=== PATIENT | female | born 1945 | race Caucasian/White ===

== ENCOUNTER → 2016-10-17 | Outpatient (CLI) | payer MEDICARE, OTHER ==
[~2016-10-17] MED LIST: 3N1 COMMODE MC; AMLO5TAB4 PO; ASPI-781 PO; BEN25 PO; BENA1TAB13 PO; BISA10SU75 PR; CARI350T29 PO; CPM MC; DIAZ5TAB4 PO; DOCU-144 PO; DULO30CA45 PO; FLUT16SP17 NASAL; HYDR200T5 PO; IBAN150T7 PO; LAMO100T83 PO; LYR75 PO; OMEP20CA16 PO; OXYC-481 PO; RANI150T9 PO; SMV40T PO; SYN75 PO; TRAM50TA2 PO; WALK1EAC23 MC
--- NOTE | 2016-10-17 09:40 | RADRPT ---
PROCEDURE: XR Knee. CLINICAL INDICATION: Left knee pain TECHNIQUE: 3 images of the left knee are available for review. COMPARISON: Radiographs of the left knee April 01, 2016 FINDINGS: There is a total left knee arthroplasty in anatomic alignment. There is no evidence of fracture or loosening by radiographs. There is a small knee joint effusion. The soft tissues are otherwise unr emarkable. IMPRESSION: 1. Left knee total arthroplasty in anatomic alignment without evidence of acute fracture or loosenin g. 2. Small nonspecific knee joint effusion. RPTAT: UU .Ben Perry MD, MD Date Time Electronically viewed and signed by .Ben Perry MD, MD on 10/17/2016 09:39 .K/
--- NOTE | 2016-10-17 10:59 | HKNOTE ---
DATE OF SERVICE: 10/17/2016 INTERVAL HISTORY: The patient presents today for a followup evaluation on her left knee. She is approximately 1-1/2 years status post left total knee arthroplasty. She is here today for reevaluation of her left knee. She was sent over by Dr. Sundar Hutchinson for evaluation. The patient has been having increasing pain to her left knee for the past 4 weeks. She denies any recurrent fall, trauma or injury. She denies any fevers or chills. She has had a lot of other issues going on including a second low back surgery as well as a right wrist surgery for a radius fracture. As a result of her back surgery she has been walking with a slightly abnormal gait, which has been aggravating her left knee symptoms. She was sent over by her primary care doctor for evaluation and x-rays of her left knee today. PHYSICAL EXAMINATION: Today, she is alert and oriented x4 and in no acute distress. She does walk with a slight Trendelenburg gait. Exam of the left knee demonstrates no effusion. Incision is clean, dry and intact. Range of motion is 0 to 120 degrees. Her hip range of motion with internal and external rotation is adequate. Varus and valgus forces of the left knee are stable. Her leg lengths are equal. Compartments are soft. Neurovascular status is intact distally. IMAGING: X-rays of the left knee were obtained today and reviewed by me. They were reviewed with her previous injections and showed no acute changes. The femoral and tibial components are still well aligned. There is no fracture or dislocation identified. ASSESSMENT: One and-a-half years status post left total knee arthroplasty. PLAN: The patient has been having some mild discomfort to the lateral aspect of her left knee over the past 4 weeks. She has been walking with a Trendelenburg gait secondary to chronic low back trouble, and I think that she is putting more stress on the left knee as a result of her gait pattern. Her knee x-rays look adequate. The replacement is well aligned. The femur and tibial components appear to be well aligned. I did write her a prescription today to apply some Voltaren gel topically to the lateral aspect of her knee where most of her discomfort is. Additionally, I did write her a formal physical therapy prescription to focus on range of motion as well as gait training. The patient will try these modalities and follow up as needed. If her symptoms do persist, she will come back in the office and see Dr. Marcos. Dictated By: VALERY CEDENO PA for VALARIE LYNN/ROLAND Conf#: [id number] DID#: [id number] CC: Sundar Hutchinson;*EndCC* MTDD
== END | disposition home or self-care (01) ==
LOC: HKI 15:00
PROVIDERS: ATTEND Orthopaedic Surgery
DX: M25.562 Pain in left knee (principal); R26.9 Unspecified abnormalities of gait and mobility; M54.5 Low back pain; Z96.652 Presence of left artificial knee joint
CPT/HCPCS: G0463

== ENCOUNTER → 2016-12-23 | Outpatient (CLI) | payer MEDICARE, OTHER ==
[~2016-12-23] MED LIST changes: +SIMV40TA3 PO; -SMV40T PO
--- NOTE | 2016-12-23 10:47 | PN ---
Date/Time of Note Date/Time of Note DATE: 12/23/16 TIME: 10:42 Outpatient Progress Note HPI Lilly presents today for a new evaluation on her right knee. She has a history of a left total knee arthroplasty, that is doing well overall. She has been developing some right-sided knee pain and discomfort, specifically medially. She has a history of a right knee arthroscopy and partial meniscectomy. Additionally she is being worked up for systemic inflammatory arthritis including rheumatoid arthritis. She denies any fevers or chills. She denies any fall or injury. She is here today for evaluation of her right knee pain. She has been using a cane to ambulate due to the discomfort. Additionally she is planning toUndergo surgery on her right foot later this week. Physical Exam On exam today, she is alert and oriented 4, and in no acute distress. She is ambulating using a cane. Exam of the right knee demonstrates no effusion. Range of motion is 0135. She does have tenderness along the medial lateral patellar facets. She does have tenderness additionally along the medial joint line. She has a 1+ Luca's and anterior drawer. Varus and valgus forces are stable. Compartments are soft. She is neurovascularly intact distally. Imaging: X-rays of the right knee were obtained today and reviewed by me. They demonstrate medial joint space narrowing. There is osteophyte formation along the medial lateral patellar facets. There is moderate subchondral sclerosis noted. No acute fracture or dislocations identified. Allergies Coded Allergies: Sulfa (Sulfonamide Antibiotics) (Verified Allergy, Unknown, 03/02/15) propofol (Verified Allergy, Unknown, 03/02/15) Assessment/Plan Assessment: Right knee osteoarthritis Plan: The patient is planning to undergo a right foot surgery later this week. Today she received a intra-articular cortisone injection without adverse event. She was advised to use Tylenol only for pain and ice the knee as needed. We will see her back on a as needed basis. The patient is to call the office if she has any concerns. Procedure: The procedure was fully explained to the patient, and informed consent was obtained prior to the start of procedure. The area was prepped and draped in sterile fashion using Betadine. Ethyl chloride was used to anesthetize the superolateral aspect of the right knee, and a mixture of 2 cc of Kenalog and 8 cc of lidocaine was injected intra-articularly. Sterile dressing was applied. The patient tolerated procedure well. All questions and concerns were addressed at the time of procedure. Medications Home Meds Active Scripts CPM: Continuous Passive Motion* (CPM*) 1 Each Dme, 1 EACH MC DIRECTED, #1 DME 0 Refills [facility] 03/03/15 Front Wheel Walker* (Front Wheel Walker*) 1 Each Dme, 1 EACH MC DIRECTED, #1 DME 0 Refills Prov:[facility] 03/03/15 3 N 1 Commode* (3 N 1 Commode*) 1 Each Dme, 1 EACH MC DIRECTED, #1 DME 0 Refills Prov:[facility] 03/03/15 Bisacodyl* (Bisacodyl*) 10 Mg Supp, 10 MG DE Q12H Y for CONSTIPATION, #60 SUPP Prov:[facility] 03/03/15 Diphenhydramine Hcl* (Benadryl*) 25 Mg Cap, 25 MG PO Q6H Y for PRURITUS, #60 CAP Prov:[facility] 03/03/15 Docusate Sodium* (Colace*) 100 Mg Cap, 100 MG PO BID, #60 Prov:[facility] 03/03/15 Tramadol HCl (Tramadol HCl) 50 Mg Tab, 50 MG PO Q6, #60 TAB Prov:[facility] 03/03/15 Ranitidine Hcl* (Zantac*) 150 Mg Tab, 150 MG PO BID, #60 Prov:[facility] 03/03/15 Oxycodone Hcl* (IR) (Roxicodone*) 5 Mg Tab, 5 MG PO Q4H Y for PAIN LEVEL 1-3, # 60 TAB Prov:[facility] 03/03/15 Aspirin* (Ecotrin*) 325 Mg Tabec, 325 MG PO BID, #60 Prov:[facility] 03/03/15 Reported Medications Diazepam* (Diazepam*) 5 Mg Tablet, 5 MG PO NEEDED , TAB 03/02/15 Simvastatin (Simvastatin) 40 Mg Tablet, 40 MG PO HS, TAB 03/02/15 Duloxetine Hcl* (Cymbalta*) 30 Mg Capsule.dr, 30 MG PO DAILY, CAP 03/02/15 Omeprazole* (Omeprazole*) 20 Mg Capsule.dr, 20 MG PO DAILY-BID, CAP 03/02/15 Hydroxychloroquine Sulfate* (Plaquenil*) 200 Mg Tab, 200 MG PO BID, TAB 03/02/15 Amlodipine Besylate* (Norvasc*) 5 Mg Tablet, 5 MG PO BID, TAB 03/02/15 Pregabalin* (Lyrica*) 75 Mg Capsule, 75 MG PO DAILY, CAP 03/02/15 Lamotrigine* (Lamictal*) 100 Mg Tablet, 250 MG PO DAILY, TAB 03/02/15 Levothyroxine Sodium* (Synthroid*) 75 Mcg Tablet, 75 MCG PO AC BREAKFAST, TAB 03/02/15 Fluticasone Propionate* (Fluticasone Propionate* Nasal) 50 Mcg/[place] - 16 Gm [place].susp, 2 SPRAYS NASAL DAILY, EA TO EACH NOSTRIL 03/02/15 Carisoprodol* (Carisoprodol*) 350 Mg Tablet, 350 MG PO DAILY Y for MUSCLE SPASMS , TAB 03/02/15 Ibandronate Sodium* (Boniva*) 150 Mg Tablet, 150 MG PO ONCE, TAB 03/02/15 Benazepril-Hydrochlorothiazide (Benazepril-Hydrochlorothiazide) 20-12.5 Mg Tablet, 1 EACH PO DAILY, TAB 03/02/15 VALERY CEDENO PA-C Dec 23, 2016 10:47
--- NOTE | 2016-12-23 17:50 | RADRPT ---
PROCEDURE: Right knee radiographs. CLINICAL INDICATION: Right knee pain. TECHNIQUE: Four views. Weight bearing. Frontal, lateral, oblique, and patellar view. COMPARISON: No prior studies are available for comparison. FINDINGS: There is no fracture or dislocation. The soft tissues are normal. There are degenerative changes with osteophytes arising from all 3 joint compartment margins. There is medial joint compartment narrowing, subarticular sclerosis, and mild deformity. There is no lytic or blastic lesion. There is no radiopaque foreign body. IMPRESSION: 1. Severe degenerative changes of the right knee predominately involving the medial joint compartme nt. RPTAT: QQ .Darryl Tejeda MD, MD Date Time Electronically viewed and signed by .Darryl Tejeda MD, on 12/23/2016 17:50 .R/
== END | disposition home or self-care (01) ==
LOC: HKI 10:04
PROVIDERS: ATTEND Orthopaedic Surgery
DX: M17.11 Unilateral primary osteoarthritis, right knee (principal); Z96.652 Presence of left artificial knee joint
CPT/HCPCS: 20610; 73564; G0463

== ENCOUNTER → 2017-02-07 | Outpatient (CLI) | payer MEDICARE, OTHER ==
--- NOTE | 2017-02-07 15:08 | HKNOTE ---
DATE OF SERVICE: 02/07/2017 CHIEF COMPLAINT: Right knee pain. HISTORY OF THE PRESENT ILLNESS: Lilly is a 71-year-old female who is here for evaluation of right knee pain. The patient has known osteoarthritis of her right knee. The pain has been ongoing for a number of years. Over the past 6 months, the pain has increased to the point where it is interfer ing with routine activities. She recently had a left total knee replacement and has recovered from that. She continues to have some pain in her left knee which she relates to abnormal gait due to he r right knee problem. She had right knee cortisone injection a couple of weeks ago and the right kn ee is feeling better. She also has back problems that make her limp. She feels that she has a pelv ic tilt due to her back problems. She is here for further management and a discussion on possible r ight total knee replacement. PAST MEDICAL HISTORY: Significant for hypertension, GI reflux, osteoarthritis, psoriasis and back p roblems. MEDICATIONS: Includes: 1. Celebrex. 2. Levothyroxine. 3. Lamictal. 4. Norvasc. 5. Plaquenil. 6. Cymbalta. 7. Simvastatin. 8. Soma. 9. Benazepril. ALLERGIES: LATEX AND PROPOFOL. PREVIOUS OPERATIONS: Include: Left knee replacement and lumbar surgery x2. She has had previous f ractures of her right wrist, left humerus and both ankles. REVIEW OF SYSTEMS: Negative for chest pain, shortness of breath, nausea, vomiting or diarrhea. PHYSICAL EXAMINATION: Shows a pleasant female who is awake, alert and oriented. She is ambulating with the use of cane. She limps on her right side. There are multiple healed incisions on her right wrist, left knee and right foot. Examination of the right knee shows minimal swelling. There is a varus deformity of 10 degrees. There is medial joint line tenderness. Range of motion of the knee is 5 to 120 degrees. There is no instability and no neurovascular deficit. X-rays of the right kne e were reviewed and show advanced osteoarthritis with almost complete loss of joint space on the med ial side with osteophyte formation and subchondral sclerosis. The left total knee replacement appea rs to be intact with no evidence of loosening. ASSESSMENT AND PLAN: A 71-year-old female with advanced arthritis of her right knee. She is limit ed by the pain. She has had injections, physical therapy and medications without much relief. She has a reasonably good result on her left knee replacement and would like to consider right total kne e replacement in the near future. Given the fact that she recently had right foot surgery, I have a dvised her to wait for about 3 months. She will be scheduled for right knee replacement around 04/29 018. All questions were answered to her satisfaction. We will see her back for her preoperative vi sit. Dictated By: ESTHER ESCOBAR MD [facility]B/NTS Conf#: [id number] DID#: [id number]
== END | disposition home or self-care (01) ==
LOC: HKI 13:25
PROVIDERS: ATTEND Orthopaedic Surgery
DX: M17.11 Unilateral primary osteoarthritis, right knee (principal); Z96.652 Presence of left artificial knee joint; I10 Essential (primary) hypertension

== ENCOUNTER → 2017-05-09 | Outpatient (CLI) | END | disposition home or self-care (01) ==

== ENCOUNTER 2017-05-13 05:40 | Inpatient (IN) | END 2017-05-14 17:14 | disposition home health service (06) | DRG 470 ==

== ENCOUNTER → 2017-05-30 | Outpatient (CLI) | END | disposition home or self-care (01) ==

== ENCOUNTER → 2017-06-27 | Outpatient (CLI) | END | disposition home or self-care (01) ==

== ENCOUNTER → 2018-06-15 | Outpatient (CLI) | payer MEDICARE, OTHER ==
[~2018-06-15] MED LIST changes: -3N1 COMMODE MC; +ALPH300C PO; -ASPI-781 PO; -BEN25 PO; +BIFI1CAP PO; -BISA10SU75 PR; +CALC1TAB79 PO; +CELE200C PO; -CPM MC; +CRAN450C PO; -DIAZ5TAB4 PO; -DOCU-144 PO; +HYDR-4012 PO; -IBAN150T7 PO; +LEVO75TA84 PO; -LYR75 PO; +MELA5TAB4 PO; -OMEP20CA16 PO; -OXYC-481 PO; +RANI-513 PO; -RANI150T9 PO; -SYN75 PO; +TETR15DR12 OP; -TRAM50TA2 PO; +UBID100C24 PO; +VIT1TABL46 PO; -WALK1EAC23 MC; +[UNRECOGNIZED DRUG - CODE] PO
--- NOTE | 2018-06-15 13:09 | PN ---
Date/Time of Note Date/Time of Note DATE: 06/15/18 TIME: 13:08 Assessment/Plan VTE Prophylaxis Pharmacological prophylaxis: other Assessment/Plan Assessment/Plan 73-year-old female who is progressing well after right total knee replacement last year. She also has a left knee replacement that is doing well. She is advised to continue unrestricted activity and follow-up annually. Subjective 24 Hr Interval Summary Free Text/Dictation Lilly is here for follow-up of bilateral knee replacement. Her right knee replacement was done most recently and she is pleased with her outcome. She is able to do most of her activities. There is occasional pain in the left knee. She denies fever or chills Exam/Review of Systems Exam Vitals Patient is afebrile Exam Examination shows healed incisions on both knees. Both knees have full range of motion. The left knee has mild tenderness and crepitus. X-rays of both knees show total knee replacements in good position with no evidence of loosening. ESTHER ESCOBAR Jun 15, 2018 13:09
--- NOTE | 2018-06-15 21:49 | RADRPT ---
PROCEDURE: XR Knees. CLINICAL INDICATION: Postop. Bilateral knee pain. TECHNIQUE: Total of four views. Frontal and lateral weight bearing views of both knees. COMPARISON: Right knee radiographs dated 06/27/2017. Left knee radiographs dated 10/17/2016. FINDINGS: There are bilateral total knee arthroplasties which appears satisfactory with no fracture, dislocatio n, or loosening. There are small bilateral joint effusions. Vascular calcifications are present consistent with athero sclerosis. There is no lytic or blastic lesion. IMPRESSION: 1. Satisfactory postoperative appearance of both knees. 2. Small bilateral knee joint effusions. 3. Atherosclerosis. RPTAT: QQ .Darryl Tejeda MD, MD Date Time Electronically viewed and signed by .Darryl Tejeda MD, on 06/15/2018 21:49 .R/
== END | disposition home or self-care (01) ==
LOC: HKI 10:38
PROVIDERS: ATTEND Orthopaedic Surgery
DX: Z09 Encounter for follow-up examination after completed treatment for conditions other than malignant neoplasm (principal); Z96.651 Presence of right artificial knee joint
CPT/HCPCS: 73565; G0463